=== PATIENT | male | born 1980 | race Caucasian/White ===

== ENCOUNTER 2017-09-08 19:55 | Emergency (ER) | payer SELFPAY ==
[~2017-09-08] VITALS: Ht 175.3 cm; Wt 86.0 kg
[2017-09-08] MEDS ORDERED: SODIUM CHLORIDE 0.9% 1,000 ML IV ONE (23:10)
[2017-09-08 23:39] LABS: BASOPHILS % 0.6 % (0.0-2.0); EOSINOPHILS % 0.1 % (0.0-5.0); HEMATOCRIT. 41.7 % (42.0-52.0); HEMOGLOBIN. 14.3 g/dL (14.0-18.0); LYMPHOCYTES % 10.3 % (20.0-50.0); MEAN CORPUSCULAR HEMOGLOBIN 34.6 pg (28.0-32.0); MEAN CORPUSCULAR VOLUME 100.7 fL (80.0-94.0); MEAN PLATELET VOLUME 7.7 fl (7.4-10.4); MONOCYTES % 2.2 % (2.0-8.0); NEUTROPHILS % 86.8 % (40.0-76.0); PLATELET 321 x1000/uL (130-400); RED BLOOD CELL COUNT 4.13 mill/uL (4.7-6.1); RED CELL DISTRIBUTION WIDTH 14.1 % (11.6-14.6)
[2017-09-08 23:52] LABS: CHLORIDE 101 mEq/L (98-107)
[2017-09-08 23:55] LABS: ETHANOL BLOOD 139 mg/dL
[2017-09-09 01:58] LABS: *AMPHETAMINES SCREEN URINE NEGATIVE (NEGATIVE); *BARBITURATES SCREEN URINE NEGATIVE (NEGATIVE); *BENZODIAZEPINES SCREEN URINE NEGATIVE (NEGATIVE)
[2017-09-09 01:59] LABS: *COCAINE SCREEN URINE NEGATIVE (NEGATIVE); CANNABINOID URINE SCREEN PRESUMTIVE POSITIVE (NEGATIVE); METHADONE URINE SCREEN NEGATIVE (NEGATIVE); OPIATES URINE SCREEN NEGATIVE (NEGATIVE); PHENCYCLIDINE URINE SCREEN NEGATIVE (NEGATIVE)
[2017-09-09 02:15] VITALS: BP 116/75
== END 2017-09-09 03:44 | disposition home or self-care (01) ==
LOC: ER 19:55
DX: E86.0 Dehydration (principal); F12.129 Cannabis abuse with intoxication, unspecified
CPT/HCPCS: 36415; 80048; 80305; 82962; 85025; 96360; 99284; G0482; J7030; Z7610

== ENCOUNTER 2018-01-27 14:36 | Emergency (ER) | payer SELFPAY ==
[~2018-01-27] VITALS: Ht 182.9 cm; Wt 86.0 kg
[2018-01-27] MEDS ORDERED: DEXTROSE 50% WATER 50ML SYRINGE IV ONE ×2 (15:13→15:45)
[2018-01-27] MEDS ORDERED: SODIUM CHLORIDE 0.9% 1,000 ML IV ONE (15:19)
[2018-01-27 16:30] LABS: HEMATOCRIT. 45.7 % (42.0-52.0); HEMOGLOBIN. 15.7 g/dL (14.0-18.0); MEAN CORPUSCULAR HEMOGLOBIN 34.7 pg (28.0-32.0); MEAN CORPUSCULAR VOLUME 100.9 fL (80.0-94.0); MEAN PLATELET VOLUME 8.2 fl (7.4-10.4); PLATELET 280 x1000/uL (130-400); RED BLOOD CELL COUNT 4.53 mill/uL (4.7-6.1); RED CELL DISTRIBUTION WIDTH 13.5 % (11.6-14.6)
[2018-01-27 16:35] LABS: CHLORIDE 100 mEq/L (98-107); INR 0.9
[2018-01-27 16:42] LABS: ETHANOL BLOOD 254 mg/dL
[2018-01-27 16:59] LABS: CREATINE KINASE 1003 IU/L (39-308)
[2018-01-27 17:00] LABS: PLATELET ESTIMATE NORMAL
[2018-01-27] MEDS ORDERED: SODIUM CHLORIDE 0.9% 1000ML BAG (SEPSIS BOLUS) IV ONE (17:00)
[2018-01-27] MEDS ORDERED: SODIUM CHLORIDE 0.9% IV SCH (17:00)
[2018-01-27 19:21] LABS: CLARITY URINE CLEAR (CLEAR); COLOR URINE YELLOW (YELLOW); KETONES URINE 2+ (NEGATIVE); LEUKOCYTE ESTERASE URINE NEGATIVE (NEGATIVE); NITRITE URINE NEGATIVE (NEGATIVE); OCCULT BLOOD URINE TRACE (NEGATIVE); PROTEIN URINE NEGATIVE (NEGATIVE); SPECIFIC GRAVITY URINE 1.017 (1.005-1.030); UROBILINOGEN URINE 0.2 E.U./dL (0.2-1.0)
[2018-01-27 19:35] LABS: *AMPHETAMINES SCREEN URINE PRESUMTIVE POSITIVE (NEGATIVE); *BARBITURATES SCREEN URINE NEGATIVE (NEGATIVE)
[2018-01-27 19:36] LABS: *BENZODIAZEPINES SCREEN URINE NEGATIVE (NEGATIVE); *COCAINE SCREEN URINE NEGATIVE (NEGATIVE); CANNABINOID URINE SCREEN PRESUMTIVE POSITIVE (NEGATIVE); METHADONE URINE SCREEN NEGATIVE (NEGATIVE); OPIATES URINE SCREEN NEGATIVE (NEGATIVE); PHENCYCLIDINE URINE SCREEN NEGATIVE (NEGATIVE)
[2018-01-27 22:45] VITALS: BP 120/73
== END 2018-01-27 22:51 | disposition home or self-care (01) ==
LOC: ER 14:40
DX: F19.10 Other psychoactive substance abuse, uncomplicated (principal); F10.129 Alcohol abuse with intoxication, unspecified; E87.2 Acidosis; E16.2 Hypoglycemia, unspecified; F12.10 Cannabis abuse, uncomplicated; F14.10 Cocaine abuse, uncomplicated; F15.10 Other stimulant abuse, uncomplicated
CPT/HCPCS: 36415; 70450; 71045; 80053; 80305; 81003; 82550; 82962; 83605; 83690; 84484; 85025; 85610; 87040; 87086; 93005; 96360; 96361; 99284; G0482; J7030

== ENCOUNTER 2024-05-01 04:09 | Emergency (ER) | payer SELFPAY ==
[~2024-05-01] VITALS: Ht 182.9 cm; Wt 73.0 kg
[2024-05-01 04:15] VITALS: TEMP 36.4; O2SAT 100
[2024-05-01 05:49] VITALS: BP 154/42; PULSE 83; RESP 18
[2024-05-01] MEDS: IBUPROFEN 600MG TABLET PO ONE (05:49)
== END 2024-05-01 06:38 | disposition home or self-care (01) ==
LOC: ER 04:09
DX: G89.29 Other chronic pain (principal); M79.605 Pain in left leg; M79.604 Pain in right leg; F10.90 Alcohol use, unspecified, uncomplicated; F12.90 Cannabis use, unspecified, uncomplicated; F14.90 Cocaine use, unspecified, uncomplicated; F15.90 Other stimulant use, unspecified, uncomplicated; Y90.9 Presence of alcohol in blood, level not specified
CPT/HCPCS: 82962; 99283

== ENCOUNTER 2024-06-02 02:48 | Emergency (ER) | payer SELFPAY ==
[~2024-06-02] VITALS: Ht 180.3 cm; Wt 77.0 kg
[2024-06-02 02:52] VITALS: BP 128/88; PULSE 99; RESP 16; TEMP 37; O2SAT 100
== END 2024-06-02 09:45 | disposition left against medical advice (07) ==
LOC: ER 02:48
DX: M79.605 Pain in left leg (principal)
CPT/HCPCS: 99283